=== PATIENT | male | born 1985 | race Caucasian/White ===

== ENCOUNTER 2016-11-28 10:00 | Emergency (ER) | payer SELFPAY ==
[2016-11-28] MEDS ORDERED: ONDANSETRON 4 MG VIAL ONE (11:06)
[2016-11-28] MEDS ORDERED: SODIUM CHLORIDE 0.9% 1,000 ML ONE (11:07)
[2016-11-28] MEDS ORDERED: DILAUDID 1 MG/ML AMP ONE ×2 (11:07→12:18)
[2016-11-28] MEDS ORDERED: KETOROLAC 30 MG/ML VIAL ONE (11:07)
== END 2016-11-28 14:11 | disposition home or self-care (01) ==
LOC: ER 10:00
DX: N13.2 Hydronephrosis with renal and ureteral calculous obstruction (principal)
CPT/HCPCS: 74176; 96361; 96374; 96375; 96376